=== PATIENT | female | born 1945 | race Caucasian/White ===

== ENCOUNTER 2018-06-16 12:53 | Day surgery (SDC) | payer BC, MEDICARE ==
[~2018-06-16 12:53] MED LIST: Acetaminophen TAB* 325 MG PO PRN; Buffered Lidocaine 0.9% SYRIN* 5 ML/SYR SYRINGE INTRADERM ONE
[2018-06-16] MEDS ORDERED: fentaNYL* 50 MCG/ML 2 ML VIAL (100 MCG VIAL) ONE (14:07)
[2018-06-16] MEDS ORDERED: Midazolam* 1 MG/ML 2 ML VIAL (2 MG) ONE (14:07)
[2018-06-16] MEDS ORDERED: Cyclopentolate 1% OPTH.SOL* 2 ML BTL ONE (14:29)
[2018-06-16] MEDS ORDERED: Lidocaine 2% EPI 1:200000 MPF*10-20 ML VIAL ONE (14:29)
[2018-06-16] MEDS ORDERED: Povidone Iodine 5% OPTH* 30 ML BTL ONE (14:29)
[2018-06-16] MEDS ORDERED: Ketorolac 0.5% OPHTH (NF) 0.5 % 5 ML BTL ONE (14:29)
[2018-06-16] MEDS ORDERED: Neomycin/Polymy/Dex OPTH.SUSP* MAXITROL 0.1% 5 ML ONE (14:29)
[2018-06-16] MEDS ORDERED: Phenylephrine 2.5% OPTH.SOL* 2 ML BTL ONE (14:29)
[2018-06-16] MEDS ORDERED: acetaZOLAMIDE TAB* 250 MG ONE (14:29)
[2018-06-16] MEDS ORDERED: Lidocaine 1%* 5 ML VIAL ONE (14:29)
[2018-06-16] MEDS ORDERED: Proparacaine 0.5% OPHTH.SOL* 15 ML BTL ONE (14:29)
[2018-06-16 14:58] VITALS: BP 149/84
--- NOTE | 2018-06-16 16:47 | OP ---
DATE OF OPERATION: 06/16/2018 - [facility] DATE OF : 1945. SURGEON: Eric Nicolas M.D. PREOPERATIVE DIAGNOSIS: Cataract left eye. POSTOPERATIVE DIAGNOSIS: Cataract left eye. OPERATIVE PROCEDURE: Extracapsular cataract extraction with intraocular lens implant left eye. DESCRIPTION OF PROCEDURE: The patient was brought to the operating room after being given 1/2% Alcaine with epinephrine drops in the preoperative area. The eye was prepped and draped in the usual sterile fashion. Sterile drape and eyelid speculum were placed. Again, topical 1/2% Alcaine with epinephrine was given. A paracentesis incision was made at the 3 o'clock position with the No.75 blade. Clear cornea incision 2.2 x 2.2-mm was created at the 3 o'clock position starting at the anterior limbus using the 2.2-mm keratome. The anterior chamber was irrigated with 0.4 mL of 1% non-preservative intracameral lidocaine and filled with DisCoVisc. A capsulorrhexis was completed using the cystotome and the Utrata forceps. Hydrodissection was performed with balanced salt solution. The lens nucleus was removed with the Phacoemulsification handpiece without incident. Cortex was removed with the irrigation-aspiration handpiece. The capsular bag was re-inflated using DisCoVisc and an [id number] implant was inserted with the shooter. The irrigation-aspiration handpiece was used to remove all residual DisCoVisc. The eye was refilled with balanced salt solution and the wound checked and found to be watertight. Topical Maxitrol drops were given. [id number]/[facility] #: [id number] [facility]
== END 2018-06-16 15:02 | disposition home or self-care (01) ==
LOC: OREAST 12:53
PROVIDERS: ATTEND Specialist
DX: H25.812 Combined forms of age-related cataract, left eye (principal); H35.3211 Exudative age-related macular degeneration, right eye, with active choroidal neovascularization; H35.3121 Nonexudative age-related macular degeneration, left eye, early dry stage; J44.9 Chronic obstructive pulmonary disease, unspecified; E03.9 Hypothyroidism, unspecified; Z87.891 Personal history of nicotine dependence; I35.0 Nonrheumatic aortic (valve) stenosis
CPT/HCPCS: A9270-GY; J2250; J3010; V2632

== ENCOUNTER 2018-06-23 12:35 | Day surgery (SDC) | payer BC ==
[2018-06-23] MEDS ORDERED: Midazolam* 1 MG/ML 2 ML VIAL (2 MG) ONE (13:57)
[2018-06-23] MEDS ORDERED: Ketorolac 0.5% OPHTH (NF) 0.5 % 5 ML BTL ONE (14:38)
[2018-06-23] MEDS ORDERED: Proparacaine 0.5% OPHTH.SOL* 15 ML BTL ONE (14:38)
[2018-06-23] MEDS ORDERED: Lidocaine 2% EPI 1:200000 MPF*10-20 ML VIAL ONE (14:38)
[2018-06-23] MEDS ORDERED: Neomycin/Polymy/Dex OPTH.SUSP* MAXITROL 0.1% 5 ML ONE (14:38)
[2018-06-23] MEDS ORDERED: acetaZOLAMIDE TAB* 250 MG ONE (14:38)
[2018-06-23] MEDS ORDERED: Lidocaine 1%* 5 ML VIAL ONE (14:38)
[2018-06-23] MEDS ORDERED: Phenylephrine 2.5% OPTH.SOL* 2 ML BTL ONE (14:38)
[2018-06-23] MEDS ORDERED: Povidone Iodine 5% OPTH* 30 ML BTL ONE (14:38)
[2018-06-23] MEDS ORDERED: Cyclopentolate 1% OPTH.SOL* 2 ML BTL ONE (14:38)
[2018-06-23 14:54] VITALS: BP 164/74
--- NOTE | 2018-06-24 03:03 | OP ---
OPERATIVE NOTE: DATE OF OPERATION: 06/23/18 - [facility] DATE OF : [birth year] SURGEON: Eric Nicolas M.D. PREOPERATIVE DIAGNOSIS: Cataract, right eye. POSTOPERATIVE DIAGNOSIS: Cataract, right eye. OPERATIVE PROCEDURE: Extracapsular cataract extraction with intraocular lens implant, right eye. PROCEDURE: The patient was brought to the operating room after being given 1/2 % Alcaine with epinephrine drops in the preoperative area. The eye was prepped and draped in the usual sterile fashion. Sterile drape and eyelid speculum were placed. Again, topical 1/2% Alcaine with epinephrine was given. A paracentesis incision was made at the 9 o'clock position with the No.75 blade. Clear cornea incision 2.2 x 2.2-mm was created at the 12 o'clock position starting at the anterior limbus using the 2.2-mm keratome. The anterior chamber was irrigated with 0.4 mL of 1% non-preservative intracameral lidocaine and filled with DisCoVisc. A capsulorrhexis was completed using the cystotome and the Utrata forceps. Hydrodissection was performed with balanced salt solution. The lens nucleus was removed with the Phacoemulsification handpiece without incident. Cortex was removed with the irrigation-aspiration handpiece. The capsular bag was re-inflated using DisCoVisc and an [id number] implant was inserted with the shooter. The irrigation-aspiration handpiece was used to remove all residual DisCoVisc. The eye was refilled with balanced salt solution and the wound checked and found to be watertight. Topical Maxitrol drops were given. [id number]/[facility] #: [id number] [facility]
== END 2018-06-23 15:00 | disposition home or self-care (01) ==
LOC: OREAST 12:35
PROVIDERS: ATTEND Specialist
DX: H25.811 Combined forms of age-related cataract, right eye (principal); H35.3211 Exudative age-related macular degeneration, right eye, with active choroidal neovascularization; H35.3121 Nonexudative age-related macular degeneration, left eye, early dry stage; I35.0 Nonrheumatic aortic (valve) stenosis; E03.9 Hypothyroidism, unspecified; J44.9 Chronic obstructive pulmonary disease, unspecified; Z87.891 Personal history of nicotine dependence
CPT/HCPCS: A9270-GY; J2250; V2632

== ENCOUNTER 2019-06-22 16:29 | Observation (INO) | payer BC ==
--- NOTE | 2019-06-22 17:03 | ED ---
Palpitations / Dysrhythmia - HPI Summary HPI Summary: 73 year old F [facility] primary care provider's [facility] accompanied by complains of tachycardia since today's primary care provider visit during which she had an abnormal EKG done. The patient as no pain. Patient additionally complains of shortness of breath that started several days ago which is aggravated by movement and exertion, and alleviated by air flowing from air conditioner and nebulizer. Patient reports recent weight loss. She denies wheezing, chest pain, abdominal pain, nausea, vomiting, abdominal swelling, bilateral leg swelling. No lightheadedness, Patient had an echocardiogram done approx 6 months ago that showed her aortic valve isn't working right" Pt scheduled for a repeat next month July 2019. 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 no leg edema, leg pain, and swelling. Patient states she has not taken diuretics. Patient had her thyroid levels checked last month per and they were "okay" . Patient does not wear oxygen at home. Her usual O2 sat is around 95. Patient uses an inhaler. Patient is a former smoker who vapes now. Patient is retired. She lives at home with her . Patients medication reviewed this visit. - History of Current Complaint Chief Complaint: EDDysrhythmPalp Time Seen by Provider: 06/22/19 16:47 Hx Obtained From: Patient, Family/Scientific Aide - Onset/Duration: Lasting Hours, Still Present Timing: Constant Severity Currently: None Aggravating: Nothing Alleviating: Nothing - Allergy/Home Medications Allergies/Adverse Reactions: Allergies Allergy/AdvReac Type Severity Reaction Status Date / Time adhesive tape Allergy Severe swelling , Verified 06/23/18 13:13 irritation Penicillins Allergy Severe Hives Verified 06/23/18 13:13 Sulfa (Sulfonamide Allergy Severe Hives Verified 06/23/18 13:13 Antibiotics) latex Allergy Intermediate Rash Verified 06/23/18 13:13 Home Medications: Home Medications Famotidine [Pepcid AC] 10 mg PO DAILY PRN 06/22/19 [History Confirmed 06/22/19] Ipratropium/Albuterol Sulfate [Iprat-Albut 0.5-3(2.5) mg/3 ml] 3 ml INH QID PRN 06/22/19 [History Confirmed 06/22/19] Multivitamins/Minerals TAB* [Theragran/minerals TAB*] 1 tab PO DAILY 06/22/19 [ History Confirmed 06/22/19] Salmeterol DISKUS (NF) [Serevent Diskus (NF)] 50 mcg INH BID PRN 06/22/19 [ History Confirmed 06/22/19] PMH/Surg Hx/FS Hx/Imm Hx Previously Healthy: Yes Endocrine/Hematology History: Reports: Hx Thyroid Disease Denies: Hx Anticoagulant Therapy Cardiovascular History: Reports: Hx Valvular Heart Disease, Other Cardiovascular Problems/Disorders - heart murmur Respiratory History: Reports: Hx Asthma, Hx Chronic Obstructive Pulmonary Disease (COPD) Sensory History: Reports: Hx Cataracts, Hx Contacts or Glasses - glasses Denies: Hx Hearing Aid Opthamlomology History: Reports: Hx Cataracts, Hx Contacts or Glasses - glasses - Cancer History Hx Chemotherapy: No - Surgical History Surgery Procedure, Year, and Place: appendectomy 1969". tonsillectomy. hysterectomy. left wrist ganglion cyst removed Hx Anesthesia Reactions: No Infectious Disease History: No Infectious Disease History: Denies: Traveled Outside the [place] in Last 30 Days - Family History Known Family History: Positive: Non-Contributory Family History: NEG: Macular degeneration - Social History Alcohol Use: Rare Hx Substance Use: No Substance Use Type: Reports: None Hx Tobacco Use: Yes Smoking Status (MU): Current Every Day Smoker Type: eCigarettes Amount Used/How Often: smoked for 40-45 years 1-1.5ppd Review of Systems Positive: Fatigue Eyes: Negative ENT: Negative Positive: Other - tachycardia. Negative: Chest Pain Respiratory: Negative - wheezing Positive: Shortness Of Breath, Other - GIBSON Gastrointestinal: Negative - abdominal swelling Negative: Abdominal Pain, Vomiting, Nausea Musculoskeletal: Negative - bilateral leg swelling All Other Systems Reviewed And Are Negative: Yes Physical Exam - Summary Physical Exam Summary: Vital Signs Reviewed: Yes A+Ox3, no distress Eyes: Conjunctiva Clear, JUDITH. EOM intact and full ENT: Hearing grossly normal TM x 2 clear, mmoist, uvula midline, no exudate, no erythema Neck: Positive: Supple Respiratory: Positive: No respiratory distress, No accessory muscle use + CTA throughout no w/r Cardiovascular: RRR + mumur, GRECIA, tachy no rubs no bruits, no JVP no peripheral edema, no calf pain abd soft + BS nt/nd no guarding, no distension Musculoskeletal Exam: MENDEZ x 4 without difficulty Strength Intact, ROM Intact Neurological: Positive: Alert, + sensation throughout Psychological: Positive: Normal Response To supervisor backfilling Skin: Positive: no rash, no ecchymosis Triage Information Reviewed: Yes Vital Signs On Initial Exam: Initial Vitals Temp Pulse Resp BP Pulse Ox 98.4 F 125 20 133/88 95 06/22/19 16:35 06/22/19 16:35 06/22/19 16:35 06/22/19 16:35 06/22/19 16:35 Vital Signs Reviewed: Yes Diagnostics - Vital Signs Vital Signs Temp Pulse Resp BP Pulse Ox 06/22/19 16:35 98.4 F 125 20 133/88 95 - Laboratory Result Diagrams: 06/23/19 06:20 06/23/19 06:20 Lab Statement: Any lab studies that have been ordered have been reviewed, and results considered in the medical decision making process. - Radiology No standard instances Radiology Interpretation Completed By: ED Physician - cephalization of mild fluid - EKG 1720 Cardiac Rate: Tachycardia - 118 BPM EKG Rhythm: Sinus Rhythm Summary of EKG Findings: Sinus tachycardia 118 BPM. Inverted T waves V4-V6. No ST elevations Re-Evaluation - Re-Evaluation First Eval Re-Evaluation Time: 19:03 Comment: given lab and imaging results. pt states slight improvement with neb. Pt trop, bnp, d dimer all slightly elevated. after discussion, pt agree to stay. d/w hospitalist -request hold lovenox, get CT non contrast of chest - barber see pt in ED. Pt aware Course/Dx - Course Course Of Treatment: Patient presents to ED with 1 week progressive dyspnea on exertion. Patient states she has no chest pain no abdominal pain or nausea vomiting or lightheadedness. Patient with Dr. URIBE today who sent her to emergency department. Patient noted to be tachycardic as well as hypoxic. Patient currently rates previous history of smoking. Patient has used her albuterol with mild improvement. On exam patient with a loud murmur. Patient without any extremity edema. Differential includes PE, CHF, COPD. We'll give Xopenex chest x-ray lab work. Patient states when her "system is off "she gets facial swelling with shellfish. Patient states otherwise she handles okay. - Diagnoses Provider Diagnoses: Tachycardia, Hypoxia Discharge - Sign-Out/Discharge Documenting (check all that apply): Patient Departure Signing out patient TO: Pierre Oconnor - awaiting imaging and pending disposition All imaging exams completed and their final reports reviewed: No - Discharge Plan Condition: Fair Disposition: ADMITTED TO [facility] - Billing Disposition and Condition Condition: FAIR Disposition: Admitted to [facility] - Attestation Statements Document Initiated by Quangibe: Yes Documenting Scribe: Love Rendon Provider For Whom Billy is Documenting (Include Credential): Xin Adams MD Scribe Attestation: Love Myles, scribed for Xin Adams MD on 06/24/19 at 1929. Scribe Documentation Reviewed: Yes Provider Attestation: The documentation as recorded by the Love stewart accurately reflects the service I personally performed and the decisions made by ne, Xin Adams MD Status of Scribe Document: Viewed
[2019-06-22 17:07] LABS: Hematocrit 40 % (35-47); Hemoglobin 13.4 g/dL (12.0-16.0); Mean Corpuscular HGB Conc 34 g/dL (31-36); Mean Corpuscular Hemoglobin 31 pg (27-31); Mean Corpuscular Volume 91 fL (80-97); Mean Platelet Volume 7.7 fL (7.4-10.4); Platelet Count 309 10^3/uL (150-450); Red Blood Count 4.38 10^6 /uL (3.70-4.87); Red Cell Distribution Width 13 % (10-15); White Blood Count 8.9 10^3/uL (3.5-10.8)
[2019-06-22 17:09] LABS: ABS Basophils 0.1 10^3/ul (0-0.2); ABS Lymphocytes 2.1 10^3/ul (1.0-4.8); ABS Monocytes 0.8 10^3/ul (0-0.8); Eosinophil % 0.2 %; Lymphocyte % 23.1 %; Nucleated Red Blood Cells % 0.1
[2019-06-22 17:28] LABS: ALT 24 U/L (7-52); AST 27 U/L (13-39); Albumin 4.4 g/dL (3.2-5.2); Albumin/Globulin Ratio 1.3 (1-3); Alkaline Phosphatase 54 U/L (34-104); Anion Gap 8 mmol/L (2-11); BUN/Creatinine Ratio 15.7 (8-20); Blood Urea Nitrogen 16 mg/dL (6-24); CO2 Carbon Dioxide 26 mmol/L (22-32); Calcium 9.9 mg/dL (8.6-10.3); Chloride 104 mmol/L (101-111); EGFR African American 64.3 (>60); EGFR Non-African American 53.1 (>60); Globulin 3.3 g/dL (2-4); Glucose 126 mg/dL (70-100); Potassium 4.5 mmol/L (3.5-5.0); Sodium 138 mmol/L (135-145); Total Protein 7.7 g/dL (6.4-8.9)
[2019-06-22 17:33] LABS: Troponin I 0.05 ng/mL (<0.04)
--- OUTSIDE RECORDS SUMMARY | 2019-06-22 18:08 | XMS REPORT | Continuity of Care Document ---
:1945 External Reference #:[id number] Author Name Aníbal Trinh M.D. Address [address] [place] [address] Care Team Providers Name Role Phone Deniz Camp M.D. 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 Onset: 06/07 of right eye Age-related nonexudative macular Eric Nicolas M.D. Onset: 06/07/2018 degeneration of left eye Combined form of senile cataract Eric Nicolas M.D. Onset: 06/07/2018 Presence of intraocular lens Eric Nicolas M.D. 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 Onset: of macula Family History Date Family Member(s) Observation Comments Father No Current Problems Mother No Current Problems First Sister Macular Degeneration Social History Type Date Description Comments Sex Unknown Marital Status Legal Status: Occupation Enviornmental Safety Work Status Retired ETOH Use Denies alcohol use Tobacco Use Start: Unknown End: Unknown Patient is a former smoker Recreational Drug Use Denies Drug Use Smoking Status Reviewed: 05/27/19 Patient is a former smoker Allergies, Adverse Reactions, Alerts Active Allergies Reaction Severity Comments Date Sulfa Antibiotics 06/07/2018 Eggs 06/07/2018 Amoxicillin 06/07/2018 Medications Active Medications SIG Qnty Indications Ordering Provider Date Zoey Sexton qam Eric Nicolas M.D. 07/26/2018 0.5-0.9% Solution Synthroid Bebeto Sorianownti FREIGHT ADJUSTER 125mcg Tablets Claritin-D 12 Hour as needed Unknown 5-120mg Tablets ER 12HR Flonase Sensimist once daily Unknown 27.5mcg/Kimberly Suspension Multiple Vitamin Eye Eric Nicolas M.D. Health Liquid History Medications Vigamox one drop right 3ml Eric Nicolas, 06/15/2018 - 0.5% Solution eye three times a M.D. 07/14/2018 day, start the day before surgery Ciprofloxacin HCL instill one drop 10units Eric Nicolas, 06/14/2018 - 0.3% in the left eye M.D. 06/14/2018 Solution three times a day, start the day before surgery Ketorolac Tromethamine 1 drop right eye 10ml Eric Nicolas, 06/14/2018 - 0.5% 3 times daily 1 M.D. 07/13/2018 Solution drop left eye 2 times daily Prednisolone Acetate 1 drop right eye 15ml Eric Nicolas, 06/14/2018 - 1% 3 times daily 1 M.D. 07/14/2018 Suspension drop left eye 2 times daily Artificial Tears as needed Unknown - 0.1-0.3% 06/13/2018 Solution Naphcon-A as needed Eric Nicolas, - 0.025-0.3% M.D. 07/26/2018 Solution Medications Administered in Office Medication SIG Qnty Indications Ordering Provider Date Avastin Bevacizumab Aníbal Trinh M.D. 04/29/2019 Injection Avastin Bevacizumab Aníbal Trinh M.D. 04/22/2019 Injection Avastin Bevacizumab Aníbal Trinh M.D. 03/18/2019 Injection Avastin Bevacizumab Aníbal Trinh M.D. 02/18/2019 Injection Avastin Bevacizumab Aníbal Trinh M.D. 02/11/2019 Injection Avastin Bevacizumab Aníbal Trinh M.D. 01/07/2019 Injection Avastin Bevacizumab Aníbal Trinh M.D. 12/03/2018 Injection Avastin Bevacizumab Aníbal Trinh M.D. 11/26/2018 Injection Avastin Bevacizumab Aníbal Trinh M.D. 10/22/2018 Injection Avastin Bevacizumab Aníbal Trinh M.D. 10/15/2018 Injection Avastin Bevacizumab Eric Nicolas M.D. 09/13/2018 Injection Avastin Bevacizumab Eric Nicolas M.D. 07/26/2018 Injection Avastin Bevacizumab Eric Nicolas M.D. 06/14/2018 Injection Vital Signs Date Vital Result Comment 04/29/2019 4:19pm BP Systolic 140 mmHg BP Diastolic 80 mmHg 04/22/2019 3:48pm BP Systolic 147 mmHg BP Diastolic 72 mmHg Heart Rate 70 /min Respiratory Rate 16 /min 03/18/2019 2:46pm BP Systolic 136 mmHg BP Diastolic 86 mmHg Heart Rate 75 /min Respiratory Rate 16 /min 02/18/2019 3:40pm BP Systolic 140 mmHg BP Diastolic 75 mmHg Heart Rate 72 /min Respiratory Rate 14 /min 02/11/2019 3:06pm BP Systolic 144 mmHg BP Diastolic 82 mmHg Heart Rate 88 /min Respiratory Rate 16 /min 01/07/2019 4:00pm BP Systolic 155 mmHg BP Diastolic 70 mmHg Heart Rate 70 /min Respiratory Rate 16 /min 12/03/2018 4:02pm BP Systolic 142 mmHg BP Diastolic 70 mmHg Heart Rate 70 /min Respiratory Rate 16 /min 11/26/2018 3:55pm BP Systolic 142 mmHg BP Diastolic 68 mmHg Heart Rate 70 /min Respiratory Rate 16 /min 10/22/2018 3:35pm BP Systolic 148 mmHg BP Diastolic 72 mmHg Heart Rate 76 /min Respiratory Rate 16 /min 10/15/2018 3:16pm BP Systolic 146 mmHg BP Diastolic 85 mmHg Heart Rate 78 /min Respiratory Rate 17 /min 09/13/2018 2:16pm BP Systolic 152 mmHg BP Diastolic 91 mmHg Heart Rate 86 /min Respiratory Rate 20 /min 07/26/2018 2:42pm BP Systolic 162 mmHg BP Diastolic 84 mmHg Heart Rate 78 /min Respiratory Rate 16 /min 06/14/2018 2:48pm BP Systolic 178 mmHg BP Diastolic 92 mmHg Heart Rate 88 /min Respiratory Rate 17 /min Procedures Date Code Description Status 04/29/2019 96868 Injection Intravitreal Of A Pharmacologic Agent Completed 04/22/2019 68845 Injection Intravitreal Of A Pharmacologic Agent Completed 03/18/2019 67706 Injection Intravitreal Of A Pharmacologic Agent Completed 02/18/2019 05708 Injection Intravitreal Of A Pharmacologic Agent Completed 02/11/2019 77288 Injection Intravitreal Of A Pharmacologic Agent Completed 01/24/2019 86898 Scanning Computerized Opthalmic Diagnostic Posterior Seg Completed Retina 01/24/2019 35444 Est Patient Comprehensive Exam Completed 01/07/2019 73662 Injection Intravitreal Of A Pharmacologic Agent Completed 12/03/2018 33877 Injection Intravitreal Of A Pharmacologic Agent Completed 11/26/2018 68968 Injection Intravitreal Of A Pharmacologic Agent Completed 10/22/2018 04695 Injection Intravitreal Of A Pharmacologic Agent Completed 10/15/2018 26411 Injection Intravitreal Of A Pharmacologic Agent Completed 10/04/2018 32131 Est Patient Comprehensive Exam Completed 10/04/2018 70847 Determination Of Refractive State Completed 10/04/2018 36566 Scanning Computerized Opthalmic Diagnostic Posterior Seg Completed Retina 09/13/2018 76351 Injection Intravitreal Of A Pharmacologic Agent Completed 07/26/2018 67167 Injection Intravitreal Of A Pharmacologic Agent Completed 06/24/2018 51718 Scanning Computerized Opthalmic Diagnostic Posterior Seg Completed Retina 06/23/2018 44139 Extracapsular Cataract Extraction W/Intraocular Lens Completed 06/16/2018 68982 Extracapsular Cataract Extraction W/Intraocular Lens Completed 06/14/2018 92744 Ophthalmic Biometry Completed 06/14/2018 65669 Ophthalmic Biometry Completed 06/14/2018 77094 Injection Intravitreal Of A Pharmacologic Agent Completed 06/07/2018 59508 Scanning Computerized Opthalmic Diagnostic Posterior Seg Completed Retina 06/07/2018 54074 Est Patient Intermediate Exam Completed Encounters Type Date Location Provider Dx Diagnosis Office Visit 06/14/2018 Eric Nicolas, Eric Nicolas, H35.3211 Exdtve age-rel 2:15p , pc [facility]. 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 If you are a smoker, we strongly recommend that you quit.If you are not a smoker, we strongly recommend that you do not start. Dr. Trinh can detect changes in your Macular Degeneration that require treatment in both eyes. It is very important to keep all of your appointments and follow Dr. Trinh's instructions. If you have any questions , please call our office.Follow up:See Procedure Order Log AVASTIN OUH35.81 Retinal edema
[2019-06-22 18:10] LABS: TSH (Thyroid Stimulating Horm) 0.57 mcIU/mL (0.34-5.60)
[2019-06-22] MEDS ORDERED: Levalbuterol 0.63MG/3ML NEB* UNIT OF USE INH ONE (18:14)
[2019-06-22] MEDS ORDERED: Acetaminophen TAB* 325 MG PO PRN (20:31)
[2019-06-22] MEDS ORDERED: Ondansetron INJ* 2 MG/ML VIAL IV PRN (20:31)
[2019-06-22] MEDS ORDERED: Famotidine TAB* 20 MG PO PRN (20:34)
[2019-06-22] MEDS ORDERED: Albuterol 2.5 MG/3 ML NEB.SOL* (0.083%) INH PRN (20:34)
[2019-06-22] MEDS ORDERED: [UNRECOGNIZED DRUG - OTHER] INH PRN (20:34)
[2019-06-22] MEDS ORDERED: Furosemide IV* 10 MG/ML 2 ML VIAL (20 MG) IV SLOW PU ONE (20:46)
[2019-06-22 21:34] LABS: Troponin I 0.06 ng/mL (<0.04)
[2019-06-22] MEDS: Enoxaparin(*) 40 MG/0.4 ML SYR SUBCUT SCH (21:55)
[2019-06-22] MEDS ORDERED: Diltiazem CD CAP* 120 MG PO ONE (23:25)
[2019-06-22 23:55] LABS: Urine Appearance Cloudy; Urine Bacteria 1+ (Absent); Urine Bilirubin Negative (Negative); Urine Blood Negative (Negative); Urine Color Straw; Urine Glucose Negative (Negative); Urine Ketones Negative (Negative); Urine Nitrite Negative (Negative); Urine Protein Negative (Negative); Urine Red Blood Cell Absent (Absent); Urine Specific Gravity 1.005 (1.010-1.030); Urine Squamous Epithelial Cell Present (Absent); Urine Urobilinogen Negative (Negative); Urine White Blood Cell 3+(>20/hpf) (Absent)
--- NOTE | 2019-06-23 00:13 | HP ---
CC: Dr. Deniz Camp * ADMISSION HISTORY AND PHYSICAL: DATE OF ADMISSION: 06/22/19 PRIMARY CARE PROVIDER: Dr. Deniz Camp MY ATTENDING WHILE IN THE HOSPITAL: Dr. Nasir Gutierrez * (DICTATED BY TANMAY REYES) CHIEF COMPLAINT: Progressive shortness of breath x2 weeks. HISTORY OF PRESENT ILLNESS: Ms. Peralta is a 73-year-old female with past medical history significant for COPD, hypothyroidism, and a heart murmur consistent with severe aortic stenosis who presents to the emergency department after 2 weeks of shortness of breath, which had been getting worse particularly with exertion and associates with palpitations, feeling that makes it better is rest. She has tried her inhaler and it has not helped. The patient was previously admitted to [facility] with COPD exacerbation and she says that feels nothing like it. The patient denies chest pain or shortness of breath. The patient had been having some dizziness with exertion. The patient has not passed out. The patient denies fevers or chills. The patient denies recent illness. The patient denies recent changes in her medications. The patient had her TSH checked within the last month and it was within normal limits. The patient denies ever having an NV. The patient denies any swelling in her legs, worst difficulty breathing when lying flat. The patient denies any chest pain on exertion. The patient is not able to walk more than approximately 10 feet getting short of breath. The patient denies any decrease in urine. No pain with urination. No abdominal pain or diarrhea. The patient has never been diagnosed with heart failure that she knows of. The patient in the emergency department was found to have a slightly elevated troponin, elevated BNP, slightly elevated creatinine. She had an EKG with signs of strain in the lateral leads as well as the CT and chest x-ray showing significant signs of fluid overload. Due to concern for heart failure in the setting of known severe aortic disease, we were asked to evaluate the patient for admission to the hospital. PAST MEDICAL HISTORY: 1. COPD. 2. Hypothyroidism. 3. Aortic stenosis. PAST SURGICAL HISTORY: 1. Appendectomy. 2. Tonsillectomy. MEDICATIONS: 1. Albuterol inhaler 2 puffs inhalation q.4 to 6 hours as needed. 2. Albuterol/ipratropium nebulizer 3 mL inhalation q.i.d. as needed. 3. Serevent Diskus 50 mcg inhalation b.i.d. as needed. 4. Multivitamin 1 tab p.o. daily. 5. Sibelium 10 mg p.o. daily as needed. 6. Levothyroxine 125 mcg p.o. daily. ALLERGIES: SULFA, PENICILLIN. FAMILY HISTORY: The patient's mother of heart disease and also had liver disease. The patient's father's family history is unknown. The patient's sister of cancer and brother of what sounds to be a PE. SOCIAL HISTORY: The patient quit smoking in 2011. The patient smoked 30 to 40 years before that the patient denies, drinking occasionally shot of chris. The patient denies illicit drug use. The patient used to work in [employer], worked for the [employer], believes she was exposed at some point to asbestos. The patient is and has 2 children. REVIEW OF SYSTEMS: A 14-point review of systems was reviewed and is negative except as above in the HPI. PHYSICAL EXAMINATION GENERAL: The patient is a 73-year-old female, who appears stated age and is sitting comfortably in bed, in no acute distress. VITAL SIGNS: Temperature 98.4, pulse rate 120, respiratory rate 21, oxygen saturation 94% on 2 L, blood pressure 122/79. HEENT: Head: Normocephalic, atraumatic. Sclerae anicteric. No conjunctival injection. Nasal mucosa moist. Oral mucosa moist. No pharyngeal erythema, discharge, or exudate. NECK: Supple, nontender. No lymphadenopathy. JVD to the corner of the jaw with hepatojugular reflux at 30 degrees. RESPIRATORY: Slight wet rales heard at the bilateral lower lobes, middle and upper lobes clear to auscultation bilaterally. CARDIAC: Tachycardiac, a grade 4/6 systolic ejection murmur heard best at the right upper sternal border with diminution of the S2 heart sound. No adventitious lung sounds. Pulses are 2+ in dorsalis pedis, posterior tibialis, and radial areas. No bilateral calf tenderness. ABDOMEN: Soft, nontender, nondistended. Bowel sounds present and normoactive in all 4 quadrants. No hepatosplenomegaly. No abdominal bruits auscultated. GENITOURINARY: No suprapubic or CVA tenderness. NEURO: Cranial nerves II through XII intact. No focal deficits. Alert and oriented x3. PSYCHIATRIC: Pleasant and cooperative. SKIN: Clean, dry, and intact. No rash. DIAGNOSTIC STUDIES/LAB DATA: White blood cell count 8.9, hemoglobin 13.4, platelet count 309. D-dimer 242. Sodium 138, potassium 4.5, chloride 104, carbon dioxide 26, anion gap 8, BUN 16, creatinine 1.02, glucose 126, calcium 9.9, magnesium 2.0. Bilirubin 0.6, AST 27, ALT 24, alkaline phosphatase 54. Troponin I 0.05. BNP 546. Protein 7.7, albumin 4.4, globulin 3.3. TSH 0.57. Studies: EKG shows sinus tachycardia, ST segment depressions with T wave inversions in the lateral leads. Left axis deviation, left atrial enlargement, rate of 119, QTc of 435. No significant changes. No previous EKG to compare. Chest x-ray shows mild interstitial edema. Chest CT shows large bilateral pleural effusions, interstitial edema, moderate emphysema. ASSESSMENT AND PLAN: Impression: Mrs. Peralta is a 73-year-old female with past medical history significant for COPD and severe aortic stenosis who presents to the emergency department with 2 weeks of progressive shortness of breath with exertion in the absence of chest pain. The patient in the emergency department was found to have slightly elevated troponin, elevated BNP, and other findings consistent with acute CHF exacerbation. The patient admitted to hospital for gentle diuresis and Cardiology consultation with regards to definitive treatment for her bowels. 1. Acute heart failure, unknown ejection fraction, aortic stenosis. The patient has clinical, laboratory, and imaging findings consistent with acute heart failure exacerbation. The patient has a murmur and known history of severe aortic stenosis. It is not clear whether this has ever discussed being intervened upon. The patient has no recollection of seeing a factory laborer nor of her murmur being further classified after she has her echocardiogram. The patient does not remember ever seeing a factory laborer. The patient was given 20 mg of IV Lasix at this time. Her echocardiogram will be repeated in the morning. Case had been discussed with Dr. Cece Morales of Cardiology and Dr. Migue Morris will see the patient in the morning to discuss treatment options. The patient will have strict I's and O's and daily weights. The patient's troponins will be trended. It is very unlikely the patient has a type 1 NV at this time in the absence of chest pain and minimally elevated troponin. This is likely related to heart failure. 2. Significant chronic obstructive pulmonary disease. Continue the patient's as needed inhalers and her Salmeterol. The patient has no signs of COPD exacerbation at this time. 3. Hypothyroidism. The patient's TSH on the low and this should be followed up outpatient. This is not likely the cause of the patient's tachycardia at this time. We will check T3 and T4 in the morning and the patient's levothyroxine should be adjusted as indicated. 4. DVT prophylaxis. Low dose Lovenox. 5. Elevated D-dimer. The patient's D-dimer by age-adjusted cut off is not even close to being abnormal. 6. FEN: The patient will have a heart-healthy diet without caffeine. Fluids are not indicated at this time due to fluid overload. 7. Disposition. The patient will admitted to hospital for observation. 8. Code status: The patient wished to be full code. The patient's surrogate decision maker will be her , Jennifer Peralta. TIME SPENT: Approximately 60 minutes was spent on the admission of this patient , 30 of which was spent [id number] with the patient obtaining history and physical and discussing treatment plan. This plan was discussed with my attending, Dr. Nasir Gutierrez, and he is in agreement. TANMAY REYES [id number]/[facility] #: [id number] MTDD
[2019-06-23 00:57] LABS: Troponin I 0.06 ng/mL (<0.04)
[2019-06-23] MEDS ORDERED: Metoprolol Tartrate IV* 1 MG/ML 5 ML VIAL IV ONE (01:20)
[2019-06-23 03:29] LABS: Troponin I 0.07 ng/mL (<0.04)
[2019-06-23] MEDS ORDERED: Levothyroxine TAB* 125 MCG TAB PO SCH (06:00)
[2019-06-23 06:44] LABS: ABS Basophils 0.1 10^3/ul (0-0.2); ABS Lymphocytes 1.8 10^3/ul (1.0-4.8); ABS Monocytes 0.8 10^3/ul (0-0.8); ABS Neutrophils 6.8 10^3/ul (1.5-7.7); Hematocrit 38 % (35-47); Hemoglobin 13.3 g/dL (12.0-16.0); Lymphocyte % 19.3 %; Mean Corpuscular HGB Conc 35 g/dL (31-36); Mean Corpuscular Hemoglobin 31 pg (27-31); Mean Corpuscular Volume 89 fL (80-97); Mean Platelet Volume 8.2 fL (7.4-10.4); Nucleated Red Blood Cells % 0.1; Platelet Count 291 10^3/uL (150-450); Red Blood Count 4.29 10^6 /uL (3.70-4.87); Red Cell Distribution Width 13 % (10-15); White Blood Count 9.5 10^3/uL (3.5-10.8)
[2019-06-23 07:05] LABS: Anion Gap 9 mmol/L (2-11); BUN/Creatinine Ratio 16.8 (8-20); Blood Urea Nitrogen 17 mg/dL (6-24); CO2 Carbon Dioxide 26 mmol/L (22-32); Calcium 9.2 mg/dL (8.6-10.3); Chloride 103 mmol/L (101-111); Cholesterol 170 mg/dL; EGFR Non-African American 53.7 (>60); Glucose 127 mg/dL (70-100); HDL Cholesterol 46.7 mg/dL; LDL Cholesterol 86 mg/dL; Potassium 3.9 mmol/L (3.5-5.0); Sodium 138 mmol/L (135-145); Triglycerides 186 mg/dL
[2019-06-23 07:18] LABS: Troponin I 0.07 ng/mL (<0.04)
[2019-06-23 07:24] LABS: T4, Total 13.26 mcg/dL (6.09-12.23)
[2019-06-23] MEDS ORDERED: Furosemide IV* 10 MG/ML VIAL (40 MG) IV SLOW PU SCH (08:00)
[2019-06-23] MEDS ORDERED: Perflutren Lipid Microsphere* 3 ML VIAL ONE (08:06)
[2019-06-23] MEDS ORDERED: Multivitamins/Minerals TAB PO SCH (09:00)
--- NOTE | 2019-06-23 09:56 | CONSULT ---
Subjective Date of Service: 06/23/19 Interval History: Admission Date: 06/22/19 Consult date: 06/23/2019 Service: Hospitalist PCP Dr. Deniz Camp CC: Dyspnea, exertional lightheadedness Reason for consult: critical aortic stenosis, severe systolic heart failure. HISTORY OF PRESENT ILLNESS: Ms. Peralta is a 73-year-old woman with a history as below. She has had at least several weeks of progressive dyspnea on exertion and extertional lightheadedness (feels confused with exertion relieved with sitting) with tachycardia. She cannot walk more than 10 feet. She has had no chest discomfort or syncope. She received 2 doses of IV lasix. She is comfortable at rest. She was found with critical aortic stenosis and severe systolic HF and is in need of aortic valve surgery PAST MEDICAL HISTORY: 1. COPD. 2. Hypothyroidism. 3. severe Aortic stenosis with normal LVEF by echo 02/2014 PAST SURGICAL HISTORY: 1. Appendectomy. 2. Tonsillectomy. MEDICATIONS: 1. Albuterol inhaler 2 puffs inhalation q.4 to 6 hours as needed. 2. Albuterol/ipratropium nebulizer 3 mL inhalation q.i.d. as needed. 3. Serevent Diskus 50 mcg inhalation b.i.d. as needed. 4. Multivitamin 1 tab p.o. daily. 5. Sibelium 10 mg p.o. daily as needed. 6. Levothyroxine 125 mcg p.o. daily. ALLERGIES: SULFA, PENICILLIN. from H+P "FAMILY HISTORY: The patient's mother of heart disease and also had liver disease. The patient's father's family history is unknown. The patient's sister of cancer and brother of what sounds to be a PE. SOCIAL HISTORY: The patient quit smoking in 2011. The patient smoked 30 to 40 years before that the patient denies, social alcohol The patient denies illicit drug use. The patient used to work in [employer], worked for the [employer], believes she was exposed at some point to asbestos. The patient is and has 2 children." Medications Active Medications: Acetaminophen (Tylenol Tab*) 650 mg PO Q6H PRN PRN Reason: MILD PAIN or TEMP > 100.4 Albuterol (Ventolin 2.5 Mg/3 Ml Neb.Tamie*) 2.5 mg INH Q6H PRN PRN Reason: SOB/WHEEZING Enoxaparin Sodium (Lovenox(*)) 40 mg SUBCUT Q24H [facility] Last Admin: 06/22/19 21:55 Dose: 40 mg Famotidine (Pepcid Tab*) 10 mg PO DAILY PRN PRN Reason: INDIGESTION Levothyroxine Sodium (Synthroid Tab*) 125 mcg PO DAILY@0600 [facility] Last Admin: 06/23/19 06:26 Dose: 125 mcg Multivitamins/Minerals (Theragran/Minerals Tab*) 1 tab PO DAILY [facility] Last Admin: 06/23/19 08:48 Dose: 1 tab Olodaterol (Striverdi Respimat) 1 puff INH BID PRN; Protocol PRN Reason: SHORTNESS OF BREATH Ondansetron HCl (Zofran Inj*) 4 mg IV Q6H PRN PRN Reason: NAUSEA Home Medications: Albuterol HFA INHALER* [Ventolin HFA Inhaler*] 2 puff INH .4-6H PRN 06/15/18 [ History Confirmed 06/22/19] Levothyroxine TAB* [Synthroid TAB*] 125 mcg PO DAILY 06/15/18 [History Confirmed 06/22/19] Famotidine [Pepcid AC] 10 mg PO DAILY PRN 06/22/19 [History Confirmed 06/22/19] Ipratropium/Albuterol Sulfate [Iprat-Albut 0.5-3(2.5) mg/3 ml] 3 ml INH QID PRN 06/22/19 [History Confirmed 06/22/19] Multivitamins/Minerals TAB* [Theragran/minerals TAB*] 1 tab PO DAILY 06/22/19 [ History Confirmed 06/22/19] Salmeterol DISKUS (NF) [Serevent Diskus (NF)] 50 mcg INH BID PRN 06/22/19 [ History Confirmed 06/22/19] Review of Systems - Measurements Intake and Output: Intake and Output Last 24 Hours 06/21/19 06/22/19 06/23/19 06/24/19 06:59 06:59 06:59 06:59 Intake Total 250 240 Output Total 350 Balance -100 240 Weight 159 lb 6.4 oz Intake: Oral 250 240 Output: Urine 350 - Review of Systems Review of Systems Statement: All other review of systems negative, unless stated above. Objective Vital Signs: Temp Pulse Resp BP Pulse Ox 97.8 F 103 21 100/66 94 06/22/19 22:53 06/23/19 02:03 06/22/19 22:53 06/23/19 01:45 06/22/19 22:53 Oxygen Devices in Use Now: Nasal Cannula Appearance: nad, pleasant Ears/Nose/Mouth/Throat: Clear Oropharnyx, Mucous Membranes Moist Neck: Trachea Midline, - - uncertan jvp Respiratory: Symmetrical Chest Expansion and Respiratory Effort, - - no obvious wheeze or rales Cardiovascular: - - 2/6 high pitched systolic murmur. Probable faint s1. s2 not heard Abdominal: NL Sounds; No Tenderness; No Distention Extremities: No Edema, No Clubbing, Cyanosis Skin: No Rash or Ulcers Neurological: Alert and Oriented x 3 Laboratory Results: 06/23/19 06:20 06/23/19 06:20 Total Bilirubin 0.60 mg/dL (0.2-1.0) 06/22/19 17:01 AST 27 U/L (13-39) 06/22/19 17:01 ALT 24 U/L (7-52) 06/22/19 17:01 Alkaline Phosphatase 54 U/L (34-104) 06/22/19 17:01 B-Natriuretic Peptide 546 pg/mL (<=100) H 06/22/19 17:01 Total Protein 7.7 g/dL (6.4-8.9) 06/22/19 17:01 Albumin 4.4 g/dL (3.2-5.2) 06/22/19 17:01 Globulin 3.3 g/dL (2-4) 06/22/19 17:01 Albumin/Globulin Ratio 1.3 (1-3) 06/22/19 17:01 Triglycerides 186 mg/dL 06/23/19 06:20 Cholesterol 170 mg/dL 06/23/19 06:20 LDL Cholesterol 86 mg/dL 06/23/19 06:20 HDL Cholesterol 46.7 mg/dL 06/23/19 06:20 TSH 0.57 mcIU/mL (0.34-5.60) 06/22/19 17:01 06/22/19 06/22/19 06/23/19 17:01 21:06 00:26 Troponin I 0.05 H* 0.06 H* 0.06 H* 06/23/19 06/23/19 02:41 06:20 Troponin I 0.07 H* 0.07 H* d-dimer 240 Diagnostic Imaging: Exam Date: 06/22/19 IMPRESSION: 1. Bilateral pleural effusions and associated lower lobe limb loss. 2. Moderate emphysema. Transthoracic Echocardiogram today Conclusions Summary: - Left ventricle: The cavity size is normal. Wall thickness is mildly increased. Systolic function is severely reduced. The estimated ejection fraction is 25%. Severe diffuse hypokinesis with regional variations. - Right ventricle: The cavity size is normal. Systolic function is normal. - Left atrium: The atrium is moderately dilated. - Mitral valve: The findings are consistent with mild stenosis. There is moderate regurgitation. - Aortic valve: The findings are consistent with critical stenosis. There is mild to moderate regurgitation. The peak systolic velocity is 4.65 m/sec. The mean systolic gradient is 53.0 mm Hg. The valve area by the velocity-time integral method is 0.37 cm^2. - Tricuspid valve: There is mild regurgitation. Recommendations: Compared to prior study from 02/2014, LVEF was previously hyperdynamic and aortic stenosis was severe. EKG Data: ekg 06/22/2019: sinus tachycardia, LAE, LVH with repolarization abnormalities Assessment/Plan Patient admitted with symptomatic critical (severe systolic HF and exertional presyncope) - Patient would benefit from urgent AVR, ideally TAVR pending further evaluation. I discussed with Dr. Villarreal at [facility] and will arrange transfer. Needs cardiac catheterization first and Dr. Cotton recommends to have this in [place] - Hold on further lasix - Sinus tachycardia is compensatory would hold avoid on any further rate control medications. - Discussed with Dr. Flores Thank you for allowing me to participate in the cardiovascular care of this patient. Please do not hesitate to contact me with questions or concerns.
--- NOTE | 2019-06-23 09:59 | ECHO ---
*[facility]* [place] [address] Fax #: [phone] Transthoracic Echocardiogram Patient: Marlena Peralta : 1945 Study Date: 06/23/2019 Age: 73 Gender: F HR: Height: 62 in /157.5 cm BSA: 1.73 m^2 Weight: 158.7 lb /72.1 kg BMI: 29.1 kg/m^2 *Insurance Examining Clerk: * Niya Nice RD *Referring Physician: * Obie Astudillo *Reading Physician: * Migue Morris MD Indications: Congestive Heart Failure. History: COPD,hypothyroid,4/6 systolic murmur. Conclusions Summary: - Left ventricle: The cavity size is normal. Wall thickness is mildly increased. Systolic function is severely reduced. The estimated ejection fraction is 25%. Severe diffuse hypokinesis with regional variations. - Right ventricle: The cavity size is normal. Systolic function is normal. - Left atrium: The atrium is moderately dilated. - Mitral valve: The findings are consistent with mild stenosis. There is moderate regurgitation. - Aortic valve: The findings are consistent with critical stenosis. There is mild to moderate regurgitation. The peak systolic velocity is 4.65 m/sec. The mean systolic gradient is 53.0 mm Hg. The valve area by the velocity-time integral method is 0.37 cm^2. - Tricuspid valve: There is mild regurgitation. Recommendations: Compared to prior study from 02/2014, LVEF was previously hyperdynamic and aortic stenosis was severe. Study data: Transthoracic echocardiogram. Procedure: Transthoracic echocardiography was performed. Image quality was fair. The study was technically limited due to poor acoustic window availability. Intravenous Definity , 3 mlswas administered. Image enhancement administered by Complete 2D, spectral Doppler, and color flow Doppler. Patient status: Observation. Patient room number: 452. Rhythm: Normal sinus rhythm. Findings Left ventricle: The cavity size is normal. Wall thickness is mildly increased. Systolic function is severely reduced. The estimated ejection fraction is 25%. Severe diffuse hypokinesis with regional variations. Left ventricular diastolic function parameters are indeterminate. Right ventricle: Well visualized. The cavity size is normal. Systolic function is normal. Ventricular septum: Well visualized. Left atrium: Well visualized. The atrium is moderately dilated. Right atrium: Well visualized. The atrium is normal in size. Atrial septum: Well visualized. Mitral valve: Well visualized. Appears moderately calcified. The leaflets are moderately thickened. The findings are consistent with mild stenosis. There is moderate regurgitation. Aortic valve: Not well visualized. The leaflets are moderately calcified. The findings are consistent with critical stenosis. There is mild to moderate regurgitation. Tricuspid valve: Well visualized. The leaflets are normal thickness. There is no evidence of stenosis. There is mild regurgitation. Pulmonic valve: Well visualized. The leaflets are normal thickness. There is no evidence of stenosis. There is mild regurgitation. Aorta: The aorta is poorly visualized. Pericardium: There is no pericardial effusion. No evidence of pleural fluid accumulation. Pulmonary arteries: Not well visualized. Systolic pressure is within the normal range. Systemic veins: Well visualized. Inferior vena cava: There is (>= 50%) respiratory change in the IVC dimension. Pulmonary veins: Visualization of the pulmonary venous anatomy is incomplete, but a significant abnormality is unlikely. Measurements Left ventricle Value Ref Aortic valve continued Value Ref SONJA, LAX 4.6 cm 3.8 - Adelfo diam/bsa, ED 1.0 cm/m^2 ----- 5.2 Peak v, S 4.65 m/sec ----- ESD, LAX (H) 4.4 cm 2.2 - VTI, S 94.6 cm ----- 3.5 Mean grad, S 53.0 mm Hg ----- FS, LAX (L) 5 % 27 - 45 Peak grad, S 86.5 mm Hg ----- PW, ED, LAX 0.8 cm 0.6 - LVOT/AV, VTI ratio 0.14 ----- 0.9 BILL, VTI 0.37 cm^2 ----- FS (L) 5 % 27 - 45 BILL, Vmax 0.41 cm^2 ----- Mid-wall FS 3 % -------- AR peak v 4.03 m/sec ----- PW, ED (H) 1.1 cm 0.6 - AR PHT 203 ms ----- 0.9 AR peak grad 65 mm Hg ----- PW/ID, ED 0.24 -------- E', lat adelfo, TDI (L) 4.6 cm/sec >=10.0 Mitral valve Value Ref E/e', lat adelfo, TDI 39 -------- Peak E 1.78 m/sec -- --- E', med adelfo, TDI 8.3 cm/sec >=7.0 Peak A 1.48 m/sec ----- E/e', med adelfo, TDI 21 -------- Decel time 119 ms -- --- E', avg, TDI 6.5 cm/sec -------- PHT 55 ms -- --- E/e', avg, TDI (H) 28 <=14 Mean grad, D 4.0 mm Hg ----- Peak grad, D 12.0 mm Hg ----- LVOT Value Ref Peak E/A ratio 1.2 ----- Diam, S 1.80 cm -------- MVA, PHT 4.0 cm^2 ----- Area 2.5 cm^2 -------- ERO, PISA 0.1 cm^2 ----- Peak lilliam, S 0.74 m/sec -------- MR vol, PISA 16 ml ----- VTI, S 13.6 cm -------- MR fraction, PISA 37 % ----- Mean grad, S 1 mm Hg -------- SV 27 ml -------- Pulmonic valve Value Ref SV/bsa 16 ml/m^2 -------- Peak v, S 0.91 m/sec ----- Peak grad, S 3.0 mm Hg ----- Ventricular septum Value Ref IVS, ED 0.9 cm 0.6 - Tricuspid valve Value Ref 0.9 TR peak v (H) 3.38 m/sec <=2. 8 Peak RV-RA grad, S 46 mm Hg ----- Right ventricle Value Ref Max TR lilliam 3.38 m/sec ----- SONJA, LAX 2.8 cm -------- SONJA minor ax, A4C 2.8 cm 1.9 - Aortic root Value Ref mid 3.5 Root diam 2.6 cm <3.9 Root max diam, ED 2.6 cm <3.9 Left atrium Value Ref ML dim, A4C 4.6 cm -------- Ascending aorta Value Ref SI dim, A4C 5.8 cm -------- AAo AP diam, S 2.8 cm ----- Vol/bsa, ES, 1-p (H) 45 ml/m^2 13 - 40 AAo AP diam/bsa, S 1.6 cm/m^2 ----- A2C Inferior vena cava Value Ref Right atrium Value Ref Diam 1.9 cm ----- SI dim, ES (L) 3.3 cm 3.4 - 5.3 ML dim, ES, A4C (L) 2.3 cm 2.6 - 4.4 SI dim, ES, A4C (L) 3.3 cm 3.4 - 5.3 SI dim/bsa, ES, A4C 1.9 cm/m^2 1.9 - 3.1 Aortic valve Value Ref Adelfo diam, ED 1.8 cm -------- Legend: (L) and (H) patti values outside specified reference range. Prepared and electronically signed by Migue Morris MD 06/23/2019 09:49
--- NOTE | 2019-06-23 14:26 | TRS ---
TRANSFER SUMMARY: DATE OF ADMISSION: 06/22/19 DATE OF DISCHARGE: 06/23/19 PRIMARY CARE PROVIDER: Dr. Deniz Camp. DISPOSITION AT DISCHARGE: [place]. CONDITION ON DISCHARGE: Stable. PRIMARY DIAGNOSIS: Critical aortic stenosis with severe systolic heart failure and exertional presyncope. SECONDARY DIAGNOSES: Include: 1. Chronic obstructive pulmonary disease. 2. Hypothyroidism. MEDICATIONS: Home medications include: 1. Pepcid 10 mg daily as needed. 2. Multivitamin 1 tab daily. 3. Synthroid 125 mcg daily. 4. Salmeterol Diskus 50 mcg twice daily as needed. 5. Albuterol 2 puffs every 4 to 6 hours as needed. 6. Ipratropium albuterol nebulizer 4 times a day as needed. PERTINENT LABORATORY DATA: At [facility] includes: Troponin I 0.7 peak, stable, trending between 0.05 and 0.7 on 5 consecutive checks. TSH is 0.57, T4 of 13.2 and free T3 of 4.2. Notably hypothyroid in 2013, euthyroid 04/27. No previous free components present. PERTINENT IMAGING: Emphysematous lungs, small bilateral pleural effusions. Chest CT: Impression: Moderate bilateral pleural effusions associated with lower lobe limb loss, moderate emphysema. Transthoracic echocardiogram: Impression: Estimated LVEF is 25% with severe diffuse hypokinesis with regional variations. Right ventricle cavity size is normal. Systolic function is normal. Left atrium is moderately dilated. Aortic valve findings are consistent with critical stenosis with moderate regurgitation. Peak systolic velocity is 4.65. Mean systolic gradient is 53. BILL is 0.37. HISTORY OF PRESENT ILLNESS AND HOSPITAL COURSE: A 73-year-old female with a past medical history as outlined in the history of present illness on the day of admission, had several weeks of progressive dyspnea on exertion, exertional lightheadedness, presented to the hospital because of these symptoms, found with critical aortic stenosis likely contributing to her symptoms. She has had no syncope. She was found in new heart failure decompensation for which she received a total of 20 mg ____torsemide__ during the course of the hospital stay. She is currently on 2.5 L nasal cannula. She was seen in consultation with Cariology Dr. Morris, consulted with our interventional radiologist, and consultation with [facility]. Arrange for her transportation and order for evaluation with left heart cath for TAVR for treatment of critical aortic stenosis. Please do not hesitate to contact with additional questions or for reports. Thank you for your assistance and caring for this patient. TIME SPENT: Greater than 60 minutes was spent on the discharge of this patient , greater than half was spent [id number] with the patient. [id number]/[facility] #: [id number] MTDD
[2019-06-23] MEDS: Enoxaparin(*) 40 MG/0.4 ML SYR SUBCUT SCH (23:12)
[2019-06-24 00:11] VITALS: BP 100/63
== END 2019-06-24 | disposition short-term general hospital (02) ==
LOC: ED 16:29 → MEDTELE 20:31
PROVIDERS: ADMIT Internal Medicine; ATTEND Internal Medicine
DX: I35.0 Nonrheumatic aortic (valve) stenosis (principal); I50.20 Unspecified systolic (congestive) heart failure; R00.0 Tachycardia, unspecified; R01.1 Cardiac murmur, unspecified; R94.31 Abnormal electrocardiogram [ECG] [EKG]; Z88.0 Allergy status to penicillin; Z88.2 Allergy status to sulfonamides; E03.9 Hypothyroidism, unspecified; Z86.79 Personal history of other diseases of the circulatory system; J45.909 Unspecified asthma, uncomplicated; J44.9 Chronic obstructive pulmonary disease, unspecified; Z79.899 Other long term (current) drug therapy; F17.210 Nicotine dependence, cigarettes, uncomplicated; Z90.89 Acquired absence of other organs
CPT/HCPCS: 36415; 71046; 71250; 80048; 80053; 80061; 81003; 81015; 83036; 83735; 83880; 84436; 84443; 84481; 84484; 85025; 85060; 85379; 87077; 87086; 87186; 93005; 93306; 96372; 96374; 96375; 99285; A9270-GY; C8929; G0378; J1650; J1940; J3490; J3535